=== PATIENT | female | born 1980 | race Caucasian/White ===

== ENCOUNTER 2018-01-18 19:10 | Outpatient (CLI) | payer OTHER | END 2018-01-18 20:40 | disposition home or self-care (01) | LOC: TRG 19:10 | PROVIDERS: ATTEND Obstetrics & Gynecology | DX: O46.93 Antepartum hemorrhage, unspecified, third trimester (principal); O47.1 False labor at or after 37 completed weeks of gestation; Z3A.40 40 weeks gestation of pregnancy | CPT/HCPCS: 59025 ==

== ENCOUNTER 2018-01-19 02:15 | Outpatient (CLI) | payer OTHER ==
[2018-01-19 03:10] VITALS: BP 121/75
[2018-01-19] MEDS ORDERED: VISTARIL PO ONE (03:18)
== END 2018-01-19 03:49 | disposition home or self-care (01) ==
LOC: TRG 02:15
PROVIDERS: ATTEND Obstetrics & Gynecology
DX: O47.1 False labor at or after 37 completed weeks of gestation (principal); Z3A.40 40 weeks gestation of pregnancy
CPT/HCPCS: 59025

== ENCOUNTER 2018-01-20 10:40 | Inpatient (IN) | payer OTHER ==
[2018-01-20] MEDS ORDERED: BRETHINE IVP PRN (15:48)
[2018-01-20] MEDS ORDERED: MINERAL OIL PO PRN (15:48)
[2018-01-20] MEDS ORDERED: BRETHINE SUB-Q PRN ×2 (15:48→17:47)
[2018-01-20] MEDS ORDERED: XYLOCAINE 2% INFILTRATI ONE ×2 (15:48→17:47)
[2018-01-20] MEDS ORDERED: LACTATED RINGERS 1,000 ML IV SCH ×2 (16:00→18:00)
[2018-01-20] MEDS ORDERED: PITOCin/NS 20 UNIT/1000ML DRIP 20 UNITS/1,000 ML BAG IV SCH ×2 (16:00→18:00)
[2018-01-20] MEDS ORDERED: PITOCin/NS 30 UNIT/500ML 30 UNITS/500 ML BAG IV SCH ×3 (16:00→18:00)
[2018-01-20 16:14] LABS: Hematocrit 34.6 % (30.3-42.9); Hemoglobin 11.6 gm/dl (10.1-14.3); Mean Corpuscular HGB Conc 34 % (30-34); Mean Corpuscular Hemoglobin 30 pg (28-32); Mean Corpuscular Volume 88 fl (79-97); Platelet Count 331 K/mm3 (140-440); Red Blood Count 3.95 M/mm3 (3.65-5.03); Red Cell Distribution Width 14.9 % (13.2-15.2)
[2018-01-20] MEDS: SUBLIMAZE IV PRN ×3 (17:00→21:14)
[2018-01-20] MEDS ORDERED: NARCAN 0.4 MG/1 ML IV PRN (17:47)
[2018-01-20] MEDS ORDERED: ZOFRAN IV PRN (17:47)
--- NOTE | 2018-01-20 17:54 | History and Physical Report ---
History of Present Illness Date of examination: 01/20/18 Date of admission: 01/20/18 16:54 Chief complaint: Intense Labor Pains History of present illness: Early entry to care, course complicated by AMA. Past History Past Medical History: no pertinent history Past Surgical History: no surgical history Family/Genetic History: diabetes Social history: no significant social history - Obstetrical History Expected Date of Delivery: 01/16/18 Actual Gestation: 40 Week(s) 4 Day(s) : 1 Medications and Allergies Allergies Allergy/AdvReac Type Severity Reaction Status Date / Time No Known Allergies Allergy Verified 01/19/18 03:24 Home Medications Medication Instructions Recorded Confirmed Last Taken Type No Known Home Medications [No 01/19/18 01/19/18 Unknown History Reported Home Medications] Active Meds: Active Medications Ephedrine Sulfate (Ephedrine Sulfate) 10 mg IV Q2M PRN PRN Reason: Hypotension Fentanyl (Sublimaze) 100 mcg IV Q2H PRN PRN Reason: Labor Pain Last Admin: 01/20/18 17:00 Dose: 100 mcg Lactated Ringer's (Lactated Ringers) 1,000 mls @ 125 mls/hr IV DIRECT JAREK Oxytocin/Sodium Chloride (Pitocin/Ns 20 Unit/1000ml Drip) 20 units in 1,000 mls @ 125 mls/hr IV DIRECT JAREK Oxytocin/Sodium Chloride (Pitocin/Ns 30 Unit/500ml) 30 units in 500 mls @ 1 mls /hr IV TITR JAREK; Protocol Mineral Oil (Mineral Oil) 30 ml PO QHS PRN PRN Reason: Constipation Terbutaline Sulfate (Brethine) 0.25 mg SUB-Q ONCE PRN PRN Reason: Hyperstimulation/Hypertonicity Terbutaline Sulfate (Brethine) 0.25 mg IVP ONCE PRN PRN Reason: Hyperstimulation/Hypertonicity Review of Systems All systems: negative - Vital Signs Vital signs: Vital Signs Pulse BP 77 128/81 01/18/18 19:45 01/18/18 19:45 Temp Pulse Resp BP Pulse Ox 97.9 F 84 16 112/71 93 01/20/18 17:19 01/20/18 17:44 01/20/18 17:19 01/20/18 17:10 01/20/18 17:44 - Physical Exam Breasts: Positive: normal Cardiovascular: Regular rate Lungs: Positive: Clear to auscultation, Normal air movement Abdomen: Positive: normal appearance, soft, normal bowel sounds Genitourinary (Female): Positive: normal external genitalia, normal perenium Vagina: Positive: normal moisture Uterus: Positive: enlarged Anus/Rectum: Positive: normal perianal skin - Obstetrical FHR: category 1 Cervical Dilatation: 3 Cervical Effacement Percentage: 100 station: -1 Uterine Contraction Pattern: Irregular Uterine Tone Measurement Phase: Resting Uterine Contraction Intensity: Moderate Results Result Diagrams: 01/20/18 15:46 Abnormal lab results 01/20/18 Range/Units 15:46 WBC 19.1 H (4.5-11.0) K/mm3 All other labs normal. Assessment and Plan A: IUP @ 40 4/7 Weeks Category I Tracing Early Labor GBS Negative P: Admit to L&D per Routine Orders Pitocin Augmentation Care transferred to Dr. Arine Caldwell
[2018-01-20] MEDS ORDERED: POLYCILLIN/NS 2 GM/100 ML 2 GM/100 ML BAG IV ONE (21:41)
[2018-01-20] MEDS ORDERED: NARCAN 2 MG/2 ML IV PRN (22:15)
[2018-01-20] MEDS ORDERED: fentaNYL-BUPIV 2 MCG/ML-0.125% 200 MCG/100 ML BAG EPIDURAL SCH (23:00)
--- NOTE | 2018-01-20 23:32 | Anesthesia Consultation ---
Anesthesia Consult and Med Hx Date of service: 01/20/18 - Airway Anesthetic Teeth Evaluation: Good ROM Head & Neck: Adequate Mental/Hyoid Distance: Adequate Mallampati Class: Class II Intubation Access Assessment: Possibly Difficult - Pulmonary Exam CTA: Yes - Cardiac Exam Cardiac Exam: RRR - Pre-Operative Health Status ASA Pre-Surgery Classification: ASA1, Emergency Proposed Anesthetic Plan: Epidural, Spinal - Pulmonary Hx Smoking: No Hx Asthma: No - Cardiovascular System Hx Hypertension: No Hx Heart Attack/AMI: No - Central Nervous System Hx Neuromuscular Disorder: No Hx Seizures: No CVA: No - Endocrine Hx Renal Disease: No
[2018-01-21] MEDS: TYLENOL PO PRN (00:09)
--- NOTE | 2018-01-21 03:14 | Progress Note ---
Assessment and Plan - Patient Problems (1) 40 weeks gestation of Onset Date: 01/21/18 Current Visit: Yes Status: Acute Plan to address problem: A: IUP @ 40 5/7 weeks in labor P: Continue with pitocin augmentation of labor Subjective - Subjective Date of service: 01/21/18 Principal diagnosis: IUP @ 40 4/7 weeks Interval history: Pt is currently on 12mu of pitocin and veronica q 3-4 mins with epidural in place. Patient reports: loss of fluid (AROM), contractions, no new complaints, no vaginal bleeding Objective - Vital Signs Vital Signs: Vital Signs - 12hr 01/20/18 01/20/18 01/20/18 15:13 15:18 15:23 Temperature Pulse Rate 81 67 86 Respiratory Rate Blood Pressure 128/71 Blood Pressure [Left] O2 Sat by Pulse 99 100 95 Oximetry 01/20/18 01/20/18 01/20/18 15:28 15:33 15:38 Temperature Pulse Rate 83 76 75 Respiratory Rate Blood Pressure Blood Pressure [Left] O2 Sat by Pulse 99 99 99 Oximetry 01/20/18 01/20/18 01/20/18 15:43 15:48 15:49 Temperature Pulse Rate 70 73 81 Respiratory Rate Blood Pressure 141/75 Blood Pressure [Left] O2 Sat by Pulse 100 100 Oximetry 01/20/18 01/20/18 01/20/18 15:53 15:58 16:03 Temperature Pulse Rate 73 79 87 Respiratory Rate Blood Pressure Blood Pressure [Left] O2 Sat by Pulse 100 100 98 Oximetry 01/20/18 01/20/18 01/20/18 16:08 16:13 16:41 Temperature Pulse Rate 82 79 81 Respiratory Rate Blood Pressure 113/76 Blood Pressure [Left] O2 Sat by Pulse 99 99 Oximetry 01/20/18 01/20/18 01/20/18 16:44 16:49 16:50 Temperature Pulse Rate 74 72 93 H Respiratory Rate Blood Pressure Blood Pressure [Left] O2 Sat by Pulse 96 97 94 Oximetry 01/20/18 01/20/18 01/20/18 16:59 17:00 17:04 Temperature Pulse Rate 89 79 Respiratory 16 Rate Blood Pressure Blood Pressure [Left] O2 Sat by Pulse 95 100 Oximetry 01/20/18 01/20/18 01/20/18 17:09 17:10 17:14 Temperature Pulse Rate 85 92 H 92 H Respiratory Rate Blood Pressure 112/71 Blood Pressure [Left] O2 Sat by Pulse 98 98 Oximetry 01/20/18 01/20/18 01/20/18 17:19 17:24 17:29 Temperature 97.9 F Pulse Rate 82 90 82 Respiratory 16 Rate Blood Pressure Blood Pressure [Left] O2 Sat by Pulse 97 96 94 Oximetry 01/20/18 01/20/18 01/20/18 17:30 17:34 17:35 Temperature Pulse Rate 85 78 82 Respiratory Rate Blood Pressure Blood Pressure [Left] O2 Sat by Pulse 94 94 91 Oximetry 01/20/18 01/20/18 01/20/18 17:39 17:44 17:49 Temperature Pulse Rate 80 84 67 Respiratory Rate Blood Pressure Blood Pressure [Left] O2 Sat by Pulse 95 93 98 Oximetry 01/20/18 01/20/18 01/20/18 17:50 17:54 17:57 Temperature Pulse Rate 86 81 81 Respiratory Rate Blood Pressure Blood Pressure [Left] O2 Sat by Pulse 89 96 94 Oximetry 01/20/18 01/20/18 01/20/18 17:59 18:04 18:09 Temperature Pulse Rate 80 79 87 Respiratory Rate Blood Pressure Blood Pressure [Left] O2 Sat by Pulse 99 97 93 Oximetry 01/20/18 01/20/18 01/20/18 18:14 18:19 18:22 Temperature Pulse Rate 83 70 81 Respiratory Rate Blood Pressure Blood Pressure [Left] O2 Sat by Pulse 97 100 94 Oximetry 01/20/18 01/20/18 01/20/18 18:24 18:29 18:34 Temperature Pulse Rate 72 82 87 Respiratory Rate Blood Pressure Blood Pressure [Left] O2 Sat by Pulse 96 99 100 Oximetry 01/20/18 01/20/18 01/20/18 18:39 18:44 18:49 Temperature Pulse Rate 87 66 64 Respiratory Rate Blood Pressure Blood Pressure [Left] O2 Sat by Pulse 99 99 99 Oximetry 01/20/18 01/20/18 01/20/18 18:53 18:54 18:59 Temperature Pulse Rate 81 79 88 Respiratory Rate Blood Pressure Blood Pressure [Left] O2 Sat by Pulse 94 98 97 Oximetry 01/20/18 01/20/18 01/20/18 19:04 19:09 19:14 Temperature Pulse Rate 81 90 98 H Respiratory Rate Blood Pressure Blood Pressure [Left] O2 Sat by Pulse 98 91 97 Oximetry 01/20/18 01/20/18 01/20/18 19:19 19:24 19:26 Temperature 99.5 F Pulse Rate 87 70 77 Respiratory 18 Rate Blood Pressure 124/79 Blood Pressure 124/79 [Left] O2 Sat by Pulse 99 100 Oximetry 01/20/18 01/20/18 01/20/18 19:27 19:29 19:35 Temperature Pulse Rate 90 75 72 Respiratory Rate Blood Pressure Blood Pressure [Left] O2 Sat by Pulse 92 91 99 Oximetry 01/20/18 01/20/18 01/20/18 19:40 19:45 19:50 Temperature Pulse Rate 88 96 H 85 Respiratory Rate Blood Pressure Blood Pressure [Left] O2 Sat by Pulse 96 95 94 Oximetry 01/20/18 01/20/18 01/20/18 19:51 19:55 20:00 Temperature Pulse Rate 84 76 86 Respiratory Rate Blood Pressure Blood Pressure [Left] O2 Sat by Pulse 94 99 95 Oximetry 01/20/18 01/20/18 01/20/18 20:05 20:06 20:09 Temperature 98.1 F Pulse Rate 100 H 76 90 Respiratory 18 Rate Blood Pressure Blood Pressure 124/79 [Left] O2 Sat by Pulse 95 97 94 Oximetry 01/20/18 01/20/18 01/20/18 20:10 20:15 20:18 Temperature Pulse Rate 79 85 87 Respiratory Rate Blood Pressure Blood Pressure [Left] O2 Sat by Pulse 98 95 94 Oximetry 01/20/18 01/20/18 01/20/18 20:20 20:25 20:30 Temperature Pulse Rate 95 H 82 86 Respiratory Rate Blood Pressure Blood Pressure [Left] O2 Sat by Pulse 91 95 87 Oximetry 01/20/18 01/20/18 01/20/18 20:35 20:40 20:45 Temperature Pulse Rate 68 77 78 Respiratory Rate Blood Pressure Blood Pressure [Left] O2 Sat by Pulse 98 99 98 Oximetry 01/20/18 01/20/18 01/20/18 20:50 20:55 21:00 Temperature Pulse Rate 76 76 81 Respiratory Rate Blood Pressure Blood Pressure [Left] O2 Sat by Pulse 98 99 98 Oximetry 01/20/18 01/20/18 01/20/18 21:05 21:10 21:13 Temperature 99.7 F H Pulse Rate 82 77 Respiratory Rate Blood Pressure Blood Pressure [Left] O2 Sat by Pulse 98 98 Oximetry 01/20/18 01/20/18 01/20/18 21:15 21:20 21:23 Temperature Pulse Rate 70 84 82 Respiratory Rate Blood Pressure Blood Pressure [Left] O2 Sat by Pulse 99 98 93 Oximetry 01/20/18 01/20/18 01/20/18 21:25 21:30 21:35 Temperature Pulse Rate 107 H 77 68 Respiratory Rate Blood Pressure Blood Pressure [Left] O2 Sat by Pulse 95 95 98 Oximetry 01/20/18 01/20/18 01/20/18 21:40 21:42 21:45 Temperature Pulse Rate 65 79 73 Respiratory Rate Blood Pressure Blood Pressure [Left] O2 Sat by Pulse 97 92 96 Oximetry 01/20/18 01/20/18 01/20/18 21:48 21:50 21:54 Temperature Pulse Rate 79 77 Respiratory Rate Blood Pressure Blood Pressure [Left] O2 Sat by Pulse 94 96 91 Oximetry 01/20/18 01/20/18 01/20/18 21:55 22:00 22:05 Temperature Pulse Rate 78 80 67 Respiratory Rate Blood Pressure Blood Pressure [Left] O2 Sat by Pulse 89 96 97 Oximetry 01/20/18 01/20/18 01/20/18 22:08 22:10 22:15 Temperature Pulse Rate 85 74 85 Respiratory Rate Blood Pressure Blood Pressure [Left] O2 Sat by Pulse 93 98 95 Oximetry 01/20/18 01/20/18 01/20/18 22:16 22:20 22:21 Temperature Pulse Rate 86 75 83 Respiratory Rate Blood Pressure 116/71 Blood Pressure [Left] O2 Sat by Pulse 94 90 79 L Oximetry 01/20/18 01/20/18 01/20/18 22:25 22:27 22:28 Temperature Pulse Rate 93 H 80 68 Respiratory Rate Blood Pressure 179/73 126/57 124/65 Blood Pressure [Left] O2 Sat by Pulse 98 Oximetry 01/20/18 01/20/18 01/20/18 22:30 22:32 22:34 Temperature Pulse Rate 68 72 83 Respiratory Rate Blood Pressure 120/61 122/62 118/59 Blood Pressure [Left] O2 Sat by Pulse 99 Oximetry 01/20/18 01/20/18 01/20/18 22:35 22:36 22:37 Temperature Pulse Rate 66 82 86 Respiratory Rate Blood Pressure 152/56 Blood Pressure [Left] O2 Sat by Pulse 99 93 Oximetry 01/20/18 01/20/18 01/20/18 22:38 22:40 22:45 Temperature Pulse Rate 79 84 100 H Respiratory Rate Blood Pressure 119/55 121/58 Blood Pressure [Left] O2 Sat by Pulse 99 99 Oximetry 01/20/18 01/20/18 01/20/18 22:46 22:49 22:50 Temperature Pulse Rate 100 H 87 98 H Respiratory Rate Blood Pressure 100/54 131/58 Blood Pressure [Left] O2 Sat by Pulse 97 Oximetry 01/20/18 01/20/18 01/20/18 22:51 22:52 22:54 Temperature Pulse Rate 102 H 101 H 95 H Respiratory Rate Blood Pressure 105/53 113/53 105/53 Blood Pressure [Left] O2 Sat by Pulse Oximetry 01/20/18 01/20/18 01/20/18 22:55 22:56 22:58 Temperature Pulse Rate 91 H 85 81 Respiratory Rate Blood Pressure 107/57 109/59 Blood Pressure [Left] O2 Sat by Pulse 86 Oximetry 01/20/18 01/20/18 01/20/18 23:00 23:02 23:04 Temperature Pulse Rate 89 85 80 Respiratory Rate Blood Pressure 112/62 113/59 112/57 Blood Pressure [Left] O2 Sat by Pulse 97 Oximetry 01/20/18 01/20/18 01/20/18 23:05 23:06 23:08 Temperature Pulse Rate 81 88 85 Respiratory Rate Blood Pressure 118/64 108/58 Blood Pressure [Left] O2 Sat by Pulse 97 Oximetry 01/20/18 01/20/18 01/20/18 23:10 23:12 23:14 Temperature Pulse Rate 83 93 H 86 Respiratory Rate Blood Pressure 113/59 113/62 112/61 Blood Pressure [Left] O2 Sat by Pulse 94 Oximetry 01/20/18 01/20/18 01/20/18 23:15 23:18 23:20 Temperature Pulse Rate 93 H 97 H 93 H Respiratory Rate Blood Pressure Blood Pressure [Left] O2 Sat by Pulse 93 93 95 Oximetry 01/20/18 01/20/18 01/20/18 23:27 23:31 23:32 Temperature Pulse Rate 80 104 H 101 H Respiratory Rate Blood Pressure 111/66 Blood Pressure [Left] O2 Sat by Pulse 97 96 Oximetry 01/20/18 01/20/18 01/20/18 23:37 23:42 23:45 Temperature Pulse Rate 95 H 100 H 115 H Respiratory Rate Blood Pressure 117/66 Blood Pressure [Left] O2 Sat by Pulse 96 96 Oximetry 01/20/18 01/20/18 01/20/18 23:47 23:52 23:57 Temperature Pulse Rate 114 H 98 H 89 Respiratory Rate Blood Pressure Blood Pressure [Left] O2 Sat by Pulse 96 97 95 Oximetry 01/21/18 01/21/18 01/21/18 00:01 00:02 00:07 Temperature Pulse Rate 83 82 89 Respiratory Rate Blood Pressure 99/55 Blood Pressure [Left] O2 Sat by Pulse 96 99 Oximetry 01/21/18 01/21/18 01/21/18 00:09 00:12 00:16 Temperature Pulse Rate 86 86 Respiratory 16 Rate Blood Pressure 92/51 Blood Pressure [Left] O2 Sat by Pulse 96 Oximetry 01/21/18 01/21/18 01/21/18 00:17 00:22 00:27 Temperature Pulse Rate 82 85 83 Respiratory Rate Blood Pressure Blood Pressure [Left] O2 Sat by Pulse 96 96 97 Oximetry 01/21/18 01/21/18 01/21/18 00:30 00:32 00:37 Temperature Pulse Rate 80 85 79 Respiratory Rate Blood Pressure 95/55 91/53 Blood Pressure [Left] O2 Sat by Pulse 96 94 Oximetry 01/21/18 01/21/18 01/21/18 00:38 00:42 00:45 Temperature Pulse Rate 79 79 77 Respiratory Rate Blood Pressure 94/55 Blood Pressure [Left] O2 Sat by Pulse 94 96 Oximetry 01/21/18 01/21/18 01/21/18 00:47 00:49 00:51 Temperature Pulse Rate 74 84 80 Respiratory Rate Blood Pressure 96/55 96/53 Blood Pressure [Left] O2 Sat by Pulse 97 Oximetry 01/21/18 01/21/18 01/21/18 00:52 00:53 00:55 Temperature Pulse Rate 82 84 80 Respiratory Rate Blood Pressure 98/55 109/57 Blood Pressure [Left] O2 Sat by Pulse 96 Oximetry 01/21/18 01/21/18 01/21/18 00:57 00:59 01:01 Temperature Pulse Rate 79 83 75 Respiratory Rate Blood Pressure 109/61 110/60 91/50 Blood Pressure [Left] O2 Sat by Pulse 96 Oximetry 01/21/18 01/21/18 01/21/18 01:02 01:03 01:05 Temperature Pulse Rate 77 73 76 Respiratory Rate Blood Pressure 91/55 92/50 Blood Pressure [Left] O2 Sat by Pulse 96 Oximetry 01/21/18 01/21/18 01/21/18 01:07 01:09 01:11 Temperature Pulse Rate 76 74 74 Respiratory Rate Blood Pressure 101/56 98/53 96/55 Blood Pressure [Left] O2 Sat by Pulse 96 Oximetry 01/21/18 01/21/18 01/21/18 01:12 01:13 01:15 Temperature Pulse Rate 78 78 72 Respiratory Rate Blood Pressure 95/50 100/52 Blood Pressure [Left] O2 Sat by Pulse 96 Oximetry 01/21/18 01/21/18 01/21/18 01:17 01:19 01:21 Temperature Pulse Rate 80 73 76 Respiratory Rate Blood Pressure 100/56 94/52 94/50 Blood Pressure [Left] O2 Sat by Pulse 97 Oximetry 01/21/18 01/21/18 01/21/18 01:22 01:27 01:32 Temperature Pulse Rate 74 81 72 Respiratory Rate Blood Pressure Blood Pressure [Left] O2 Sat by Pulse 96 93 96 Oximetry 01/21/18 01/21/18 01/21/18 01:33 01:37 01:39 Temperature Pulse Rate 94 H 76 72 Respiratory Rate Blood Pressure 97/53 Blood Pressure [Left] O2 Sat by Pulse 94 95 94 Oximetry 01/21/18 01/21/18 01/21/18 01:42 01:47 01:52 Temperature Pulse Rate 74 80 78 Respiratory Rate Blood Pressure 100/55 Blood Pressure [Left] O2 Sat by Pulse 95 95 96 Oximetry 01/21/18 01/21/18 01/21/18 01:54 01:57 02:02 Temperature Pulse Rate 78 99 H 73 Respiratory Rate Blood Pressure Blood Pressure [Left] O2 Sat by Pulse 94 94 96 Oximetry 01/21/18 01/21/18 01/21/18 02:07 02:12 02:17 Temperature Pulse Rate 72 71 76 Respiratory Rate Blood Pressure 98/56 Blood Pressure [Left] O2 Sat by Pulse 96 96 97 Oximetry 01/21/18 01/21/18 01/21/18 02:21 02:22 02:27 Temperature Pulse Rate 78 79 69 Respiratory Rate Blood Pressure 96/55 Blood Pressure [Left] O2 Sat by Pulse 96 97 Oximetry 01/21/18 01/21/18 01/21/18 02:32 02:37 02:38 Temperature Pulse Rate 71 70 71 Respiratory Rate Blood Pressure 103/53 Blood Pressure [Left] O2 Sat by Pulse 98 98 Oximetry 01/21/18 01/21/18 01/21/18 02:39 02:42 02:45 Temperature Pulse Rate 75 75 78 Respiratory Rate Blood Pressure Blood Pressure [Left] O2 Sat by Pulse 94 96 91 Oximetry 01/21/18 01/21/18 01/21/18 02:47 02:52 02:53 Temperature Pulse Rate 71 87 83 Respiratory Rate Blood Pressure 106/57 Blood Pressure [Left] O2 Sat by Pulse 96 96 Oximetry 01/21/18 01/21/18 01/21/18 02:57 02:58 03:02 Temperature Pulse Rate 74 77 79 Respiratory Rate Blood Pressure Blood Pressure [Left] O2 Sat by Pulse 94 92 97 Oximetry 01/21/18 01/21/18 03:07 03:08 Temperature Pulse Rate 69 78 Respiratory Rate Blood Pressure 118/71 Blood Pressure [Left] O2 Sat by Pulse 99 Oximetry - Exam Abdomen: Present: normal appearance, soft FHR: category 1 Uterine Contraction Monitor Mode: External Cervical Dilatation: 4 Cervical Effacement Percentage: 100 station: -1 Uterine Contraction Pattern: Regular Uterine Tone Measurement Phase: Contraction Uterine Contraction Intensity: Moderate - Labs Labs: Abnormal Labs 01/20/18 15:46 WBC 19.1 H Laboratory Results - last 24 hr 01/20/18 01/20/18 15:46 15:46 WBC 19.1 H RBC 3.95 Hgb 11.6 Hct 34.6 MCV 88 MCH 30 MCHC 34 RDW 14.9 Plt Count 331 Blood Type A POSITIVE Antibody Screen Negative
[2018-01-21] MEDS ORDERED: XYLOCAINE MPF 2% ONE ×2 (03:20→20:57)
[2018-01-21] MEDS: AMPICILLIN/NS 1 GM/50 ML 1 GM/50 ML BAG IV SCH ×4 (06:00→20:50)
--- NOTE | 2018-01-21 18:21 | Event Note ---
37yo 40 5/7 weeks, dilated 8cm, caput, Pit stopped. AROM ~13hrs. Temp: /-2 Plan: 1. Recheck cervix 1 hr. 2. Restart Pitocin. 3. If no decent of vertex in 1 hr, plan primary section due to arrest of decent.
[2018-01-21] MEDS ORDERED: BICITRA PO ONE (20:57)
[2018-01-21] MEDS ORDERED: REGLAN IV ONE (20:57)
[2018-01-21] MEDS ORDERED: PEPCID IV ONE (20:57)
[2018-01-21] MEDS ORDERED: LACTATED RINGERS 1,000 ML IV SCH (21:00)
[2018-01-21] MEDS ORDERED: ANCEF/STERILE WATER 2 GM/20 ML 2 GM/20 ML SYRINGE IV NR (21:00)
[2018-01-21] MEDS ORDERED: METHERGINE IM ONE ×2 (21:10→22:09)
[2018-01-21] MEDS ORDERED: REGLAN ONE (21:10)
--- NOTE | 2018-01-21 21:20 | Event Note ---
Date: 01/21/18 SVE at 20:45: /-1. FHR baseline now 165-170 and maternal temp. 99.9. Thin meconium fluid noted. Consulted Dr. Mahmood at 20:50 regarding cervical exam, FHR tracing and temp. section called by Dr. Mahmood. Nursing and surgical team and anesthesia notified of need to do section. Discussed this plan with patient and family.
[2018-01-21] MEDS ORDERED: WATER FOR IRRIG STERILE IR ONE (21:21)
[2018-01-21] MEDS ORDERED: NACL 0.9% IR ONE (21:21)
[2018-01-21] MEDS ORDERED: ASTRAMORPH PF 10MG/10ML ONE (21:43)
[2018-01-21] MEDS ORDERED: LANSINOH TP PRN (23:03)
[2018-01-21] MEDS ORDERED: MYLICON PO PRN (23:03)
[2018-01-21] MEDS ORDERED: MILK OF MAGNESIA PO PRN (23:03)
[2018-01-21] MEDS ORDERED: PERCOCET 5/325 PO PRN (23:03)
[2018-01-21] MEDS ORDERED: TUCKS PAD TP PRN (23:03)
[2018-01-21] MEDS ORDERED: PHENERGAN PR PRN (23:23)
[2018-01-21] MEDS ORDERED: ZOFRAN IV PRN (23:23)
[2018-01-21] MEDS ORDERED: DILAUDID IV PRN (23:23)
--- NOTE | 2018-01-21 23:26 | Operative Report ---
Operative Report Operative Report: PREOP Diagnosis 1. 40 6/7 weeks gestation 2. Arrest of descent 3. tachycardia 4. Meconium stained membranes Postop Diagnosis 1. 40 6/7 weeks gestation 2. Arrest of descent 3. tachycardia 4. Meconium stained membranes Procedure: Primary low-transverse section Findings 1. Viable female infant in the vertex position, weighing 8lb 7 oz, 3828g APGARS 8 at 1 min, 9 at 5 min 2. Normal uterus bilateral ovaries and tubes 3. Distended urinary bladder Surgeon 1. Glenna Mahmood MD Anesthesia: 1. Epidural I/O: EBL: 800ml UOP: 450 ml Specimens removed: 1. Placenta - sent to pathology Complications: none Disposition: Patient taken to recovery room in stable condition INDICATIONS: The patient is a 37yo at 40 6/7weeks that was undergoing augmentation of labor and was found to make cervical change but no descent of head. Maternal temp was 99, heart tones 170s therefore the decision was made to proceed to primary section. The patient was consented and the risks including but not limited to bleeding, infections, injury to surrounding organs , potential injury to mother/infant were discussed. All questions were answered and informed consent signed. PROCEDURE: The patient was taken to the OR in stable condition. Adequate anesthesia was achieved with epidural anesthesia. A wren catheter had been previously placed. She wore SCDs for DVT prophylaxis. And received Ancef for infection prophylaxis. heart tones were confirmed 145. The patient was prepped and draped in the usual fashion and an additional time out was done. A Pfannestiel incision was made in the skin. The fascia was incised and the incision extended laterally. The superior and inferior aspect of the rectus muscle was dissected off of the fascia. Upon dissection of the rectus muscle at the midline the peritoneum was noted to bulge. Entry into the peritoneum was achieved through careful dissection and the urinary bladder was noted to be distended. the OR nurse was then made aware and assisted by deflating the Wren bulb while pressure was applied to the urinary bladder to assist in emptying. Once the bladder was deflated and the uterus was visualized, the wren bulb was then inflated. A bladder blade was placed protecting the bladder. A low-transverse incision made made in the uterus and extended laterally. membranes were ruptured and noted to be of thin meconium A vaginal hand was assisted by the OR nurse assisting in elevation of the head out of the pelvis. The head was brought to the hysterotomy and delivered The body was delivered and mouth bulb suctioned. The cord was clamped x 2, cut and handed off to awaiting central office equipment installer staff. Cord gases were collected. The placenta was delivered intact. 20 units of IV Pitocin were added to LR fluids. Methergine 0.2mg IM was administered. The uterus was cleaned of all clots. An Chencho retractor was placed to assist in visualization. A lap previously placed in the abdomen for packing was removed. The uterus was repaired with 0-Vicryl in a running, locked stitch and an imbricating layer of the same suture was used. The rectus muscle was re-approximated with 2- 0Vicryl. Interceed was applied to the upper aspect of the rectus muscle. Fascia was closed with 0 Vicryl. Subcutaneous layer reapproximated with 230 Vicryl. Skin closed with 4-0 Vicryl. The patient tolerated the procedure well. All counts were correct x 3. Urine was noted to be clear at close of case. I was present and scrubbed for the entire procedure. The patient was taken to the recovery room in stable condition.
[2018-01-21] MEDS ORDERED: PITOCin/NS 20 UNIT/1000ML DRIP 20 UNITS/1,000 ML BAG IV SCH (23:45)
[2018-01-21] MEDS ORDERED: SODIUM CHLORIDE FLUSH SYRINGE 10 ML IV NR (23:45)
[2018-01-21] MEDS ORDERED: fentaNYL-BUPIV 2 MCG/ML-0.125% 200 MCG/100 ML BAG EPIDURAL SCH (23:45)
[2018-01-21] MEDS: TORADOL IV PRN (23:59)
[2018-01-22] MEDS: TYLENOL PO PRN (00:19)
[2018-01-22] MEDS: ANCEF/NS 1 GM/50 ML 1 GM/50 ML BAG IV SCH ×2 (05:42→14:15)
[2018-01-22] MEDS ORDERED: D5LR 1,000 ML IV SCH (06:00)
[2018-01-22] MEDS: TORADOL IV PRN (08:05)
--- NOTE | 2018-01-22 09:40 | Progress Note ---
Assessment and Plan A: /postop day 1 S/P LTCS. P: Advance diet as tolerated. Ambulate today. Subjective - Subjective Date of service: 01/22/18 Principal diagnosis: /postop day 1 S/P primary LTCS Interval history: /postop day 1 S/P primary low transverse section. Doing well. Not passing gas yet. Has not been out of bed to ambulate yet. Graham catheter in place. Patient reports small amount of lochia. Patient denies headache, chest pain, cough, shortness of breath, leg pain, abdominal pain, heavy bleeding, or any other problems. Patient reports: appetite normal, voiding normally, pain well controlled, ambulating normally [place]: doing well Objective - Vital Signs Latest vital signs: Vital Signs Temp Pulse Resp BP BP Pulse Ox 01/22/18 08:11 98.4 F 79 22 118/71 97 01/22/18 04:00 98.7 F 69 18 117/72 01/22/18 00:45 98.7 F 84 18 122/69 01/22/18 00:15 87 14 112/60 96 01/22/18 00:10 82 13 120/72 94 01/22/18 00:00 104 H 15 125/69 96 01/21/18 23:40 96 H 18 116/55 96 01/21/18 23:36 85 18 108/49 98 01/21/18 23:30 87 14 118/57 95 01/21/18 23:25 84 14 122/65 97 01/21/18 23:19 89 14 118/64 93 01/21/18 23:12 99.8 F H 90 16 122/62 96 01/21/18 21:07 99 H 128/70 01/21/18 21:02 89 97 01/21/18 20:58 78 139/67 01/21/18 20:57 77 97 01/21/18 20:52 95 H 144/97 99 01/21/18 20:47 107 H 98 01/21/18 20:43 86 91 01/21/18 20:39 73 99 01/21/18 20:35 83 87 01/21/18 20:34 80 98 01/21/18 20:29 89 85 01/21/18 20:24 78 100 01/21/18 20:23 86 141/72 10/05/18 20:19 86 100 05/18 20:14 86 100 05/18 20:09 79 99 05/18 20:07 80 134/74 05/18 20:04 85 98 05/18 19:59 99.9 F H 92 H 18 99 05/18 19:52 90 126/60 05/18 19:37 80 125/60 05/18 19:24 99.1 F 83 18 05/18 19:22 83 121/61 1005/18 19:07 85 113/66 05/18 18:51 86 118/61 05/18 18:36 118 H 135/66 05/18 18:22 86 134/66 05/18 18:06 80 121/61 05/18 17:52 85 116/60 05/18 17:37 85 117/65 05/18 17:23 97 H 114/72 05/18 17:22 94 H 91 0518 17:17 89 92 0518 17:12 92 H 96 05/18 17:07 88 118/72 97 0518 17:02 92 H 97 18 16:57 99 H 98 0518 16:52 85 126/62 70 L 18 16:47 88 91 05/18 16:42 90 91 05/18 16:38 89 94 05/18 16:37 87 95 05/18 16:36 88 119/66 05/18 16:33 90 94 05/18 16:32 90 92 05/18 16:27 85 94 05/18 16:25 96 H 93 05/18 16:22 85 115/63 96 05/18 16:17 84 96 05/18 16:12 87 95 05/18 16:10 92 H 94 05/18 16:07 85 120/65 94 05/18 16:04 86 94 05/18 16:02 81 96 05/18 15:57 85 95 05/18 15:54 86 93 05/18 15:52 88 95 10/05/18 15:51 81 122/64 10/05/18 15:47 81 96 10/05/18 15:46 81 93 10/05/18 15:42 82 97 10/05/18 15:37 78 96 10/05/18 15:36 73 134/71 10/05/18 15:35 73 94 10/05/18 15:32 80 96 10/05/18 15:27 77 97 10/05/18 15:22 82 97 10/05/18 15:21 82 130/73 93 10/05/18 15:17 84 96 10/05/18 15:12 78 97 10/05/18 15:11 83 93 10/05/18 15:07 75 97 10/05/18 15:06 74 129/71 1005/18 15:02 79 97 10/05/18 14:57 76 98 10/05/18 14:52 75 129/73 98 10/05/18 14:47 66 97 10/05/18 14:42 75 97 1005/18 14:37 74 128/72 96 10/05/18 14:32 73 97 10/05/18 14:27 77 97 10/05/18 14:25 82 94 10/05/18 14:22 76 97 10/05/18 14:21 84 135/70 10/05/18 14:17 78 95 10/05/18 14:13 84 94 10/05/18 14:12 77 95 10/05/18 14:08 75 127/66 10/05/18 14:07 74 97 10/05/18 14:03 82 94 10/05/18 14:02 81 97 10/05/18 13:57 83 94 10/05/18 13:55 80 94 10/05/18 13:52 80 129/67 96 10/05/18 13:47 81 93 10/05/18 13:44 81 93 10/05/18 13:42 80 98 10/05/18 13:38 82 134/66 10/05/18 13:37 76 97 10/05/18 13:36 81 94 10/05/18 13:32 81 96 10/05/18 13:28 80 94 10/05/18 13:27 76 95 10/05/18 13:23 80 117/63 10/05/18 13:22 83 97 10/05/18 13:17 81 96 10/05/18 13:12 77 95 10/05/18 13:08 77 114/65 10/05/18 13:07 86 98 10/05/18 13:02 86 98 10/05/18 12:57 86 96 10/05/18 12:52 84 111/66 98 10/05/18 12:47 77 96 10/05/18 12:44 75 93 10/05/18 12:42 74 98 10/05/18 12:37 78 97 10/05/18 12:36 74 112/62 10/05/18 12:32 79 96 10/05/18 12:30 81 118/65 10/05/18 12:27 69 96 10/05/18 12:26 76 123/68 94 10/05/18 12:22 87 98 10/05/18 12:21 87 115/68 10/05/18 12:19 89 111/67 1005/18 12:17 77 99 1005/18 12:12 72 96 1005/18 12:07 78 98 1005/18 12:06 80 113/60 1005/18 12:02 90 100 10/05/18 11:57 95 H 99 10/05/18 11:52 80 106/56 97 10/05/18 11:47 84 98 10/05/18 11:42 81 97 10/05/18 11:40 82 88 10/05/18 11:37 87 98 10/05/18 11:36 97 H 95/52 10/05/18 11:32 83 98 10/05/18 11:27 81 99 10/05/18 11:22 78 99 10/05/18 11:21 79 103/57 10/05/18 11:17 85 98 10/05/18 11:12 82 98 10/05/18 11:07 84 99 10/05/18 11:06 81 105/58 10/05/18 11:02 90 98 10/05/18 10:57 75 98 10/05/18 10:52 82 99 10/05/18 10:51 75 107/60 10/05/18 10:47 78 99 10/05/18 10:42 88 98 10/05/18 10:37 80 98 10/05/18 10:36 79 113/66 10/05/18 10:32 79 99 01/21/18 10:27 81 99 01/21/18 10:22 77 99 01/21/18 10:21 80 113/70 01/21/18 10:17 80 98 01/21/18 10:12 82 98 01/21/18 10:07 84 98 01/21/18 10:06 82 111/60 01/21/18 10:02 75 98 01/21/18 10:01 98.2 F 01/21/18 09:57 78 98 01/21/18 09:52 82 98 01/21/18 09:51 82 112/60 01/21/18 09:47 83 99 01/21/18 09:42 89 98 01/21/18 09:37 80 99 01/21/18 09:36 78 112/62 Intake and Output 01/21/18 01/22/18 01/22/18 23:59 07:59 15:59 Intake Total 2068.867 Output Total 600 2000 Balance 1468.867 -2000 Intake: IV 2068.867 AMPICILLIN/NS 1 GM/50 ML 50 1 gm In 50 ml @ 100 mls/ hr IV Q4HR [facility] Rx#: [id number] PITOCin/NS 30 UNIT/500ML 18.867 30 units In 500 ml @ 4 MILLIUNITS/MIN 4 mls/hr IV TITR JAREK Rx#:[id number] Output: Urine 600 2000 Indwelling Catheter 400 1600 Uretheral (Graham) 400 Other: Total, Output Amount 400 800 Estimated Blood Loss 800 - Exam Cardiovascular: Present: Regular rate, Normal S1, Normal S2 Lungs: Present: Clear to auscultation Abdomen: Present: normal appearance, soft, normal bowel sounds. Absent: distention, tenderness, guarding, rigidity Uterus: Present: normal, firm, fundal height below umbilicus. Absent: bogginess , tenderness Extremities: Present: normal. Absent: tenderness, edema Incision: Present: normal, dry, intact, dressed - Labs Labs: Abnormal lab results 01/21/18 01/21/18 Range/Units 22:22 22:32 POC ABG pH 7.331 L (7.35-7.45) POC ABG pCO2 34.4 L 29.0 L (35-45) POC ABG pO2 17 L 20 L (80-105)
[2018-01-22 10:48] LABS: Alanine Aminotransferase 9 units/L (7-56); Albumin 2.6 g/dL (3.9-5); BUN/Creatinine Ratio 11; Blood Urea Nitrogen 10 mg/dL (7-17); Calcium 8.4 mg/dL (8.4-10.2); Hemolysis Index 16
[2018-01-22 11:06] LABS: Hemoglobin 10.5 gm/dl (10.1-14.3)
[2018-01-23] MEDS: MOTRIN PO PRN ×2 (10:28→18:46)
--- NOTE | 2018-01-23 13:40 | Progress Note ---
Assessment and Plan A: /postop day 2 S/P primary low transverse section. Anemia. P: Continue iron supplements. Continue to ambulate. Subjective - Subjective Date of service: 01/23/18 Principal diagnosis: /postop day 2 S/P primary LTCS Interval history: /postop day 2 S/P primary low transverse section. Doing well. Patient is passing gas and voiding without difficulty. She is ambulating well. She is tolerating a regular diet without nausea or vomiting. Patient denies headache, chest pain, cough, shortness of breath, abdominal pain , leg pain, swelling, or any other symptoms. Patient reports: appetite normal, voiding normally, pain well controlled, flatus , bowel movement, ambulating normally [place]: doing well Objective - Vital Signs Latest vital signs: Vital Signs Temp Pulse Resp BP BP Pulse Ox 01/23/18 08:09 97.8 F 76 18 102/61 100 01/23/18 01:16 98.8 F 88 18 101/61 98 01/22/18 21:54 98.3 F 88 18 100 01/22/18 21:53 18 107/67 01/22/18 16:22 98.7 F 87 20 103/62 97 01/22/18 14:15 98.7 F 84 18 101/66 98 Intake and Output 01/22/18 01/23/18 01/23/18 23:59 07:59 15:59 Other: # Voids Indwelling Catheter 1 - Exam Cardiovascular: Present: Regular rate, Normal S1, Normal S2 Lungs: Present: Clear to auscultation Abdomen: Present: normal appearance, soft, normal bowel sounds. Absent: distention, tenderness, guarding, rigidity Uterus: Present: normal, firm, fundal height below umbilicus. Absent: bogginess , tenderness Extremities: Present: normal. Absent: tenderness, edema Incision: Present: normal, dry, intact
[2018-01-24] MEDS: MOTRIN PO PRN (08:32)
--- NOTE | 2018-01-24 10:01 | Discharge Summary ---
Providers - Providers Date of Admission: 01/20/18 16:54 Date of discharge: 01/24/18 Attending physician: GILLIAN MICHAELS MD Primary care physician: GILLIAN MICHAELS MD Hospitalization Reason for admission: active labor, IUP at term Delivery: Procedure: primary low transverse Episiotomy: none Laceration: none Incision: normal, dry, intact Other procedures: none complications: none Discharge diagnosis: IUP at term delivered [place] baby: female Hospital course: Uncomplicated Condition at discharge: Stable Disposition: DC-01 TO HOME OR SELFCARE - Discharge Diagnoses (1) S/P primary low transverse Status: Acute Plan - Discharge Medications Prescriptions: Ibuprofen 800 mg PO Q6H 10 Days #30 tablet MDD 3200mg oxyCODONE /ACETAMINOPHEN [Percocet 5/325] 1 tab PO Q4HR PRN 14 Days #30 tab PRN Reason: Pain, Moderate (4-6) - Provider Discharge Summary Activity: routine, no sex for 6 weeks, no heavy lifting 4 weeks, no strenuous exercise Diet: routine Instructions: routine Additional instructions: [] Smoking cessation referral if applicable(refer to patient education folder for contact #) [] Refer to [facility] Booklet Call your doctor immediately for: * Fever > 100.5 * Heavy vaginal bleeding ( >1 pad per hour) * Severe persistent headache * Shortness of breath * Reddened, hot, painful area to leg or breast * Drainage or odor from incision. * Keep incision clean and dry at all times and follow doctor's instructions regarding bathing/showering - Follow up plan Follow up: GILLIAN MICHAELS MD [Primary Care Provider] - 7 Days (Follow up at [facility] in 1 week for incision check)
--- NOTE | 2018-01-24 10:01 | Progress Note ---
Assessment and Plan - Patient Problems (1) S/P primary low transverse Current Visit: Yes Status: Acute Plan to address problem: POD 3 - stable Discharge to home today Follow up at [facility] in 1 week for incision check Subjective - Subjective Date of service: 01/24/18 Principal diagnosis: POD #3; s/p Primary LTCS Patient reports: appetite normal, voiding normally, pain well controlled, flatus , ambulating normally : doing well, nursing well Objective - Vital Signs Latest vital signs: Vital Signs Temp Pulse Resp BP BP Pulse Ox 01/24/18 08:52 97.5 F L 60 18 109/64 01/24/18 08:32 20 01/24/18 00:27 97.8 F 66 16 95/54 01/23/18 15:57 98.2 F 82 18 102/65 98 Intake and Output 01/23/18 01/24/18 01/24/18 23:59 07:59 15:59 Intake Total 360 240 120 Balance 360 240 120 Intake: Oral 120 Intake, Free Water 360 240 Other: Total, Intake Amount 120 # Voids Void 1 2 - Exam Abdomen: Present: normal appearance, soft Vulva: both: normal Uterus: Present: normal, firm, fundal height below umbilicus Extremities: Present: normal Incision: Present: normal, dry, intact Comments: scant lochia
[2018-01-24 15:52] VITALS: BP 106/70
== END 2018-01-24 19:15 | disposition home or self-care (01) | DRG 788 ==
LOC: TRG 10:40 → LD 16:54 → APU 01-21 21:59 → OB 01-22 00:59
PROVIDERS: ADMIT Obstetrics & Gynecology; ATTEND Obstetrics & Gynecology
PROC: 10D00Z1 Extraction of Products of Conception, Low, Open Approach (ICD-10-PCS; principal; 2018-01-21)
DX: O77.0 Labor and delivery complicated by meconium in amniotic fluid (principal); Z3A.40 40 weeks gestation of pregnancy; Z37.0 Single live birth; Z83.3 Family history of diabetes mellitus; O62.1 Secondary uterine inertia; O76 Abnormality in fetal heart rate and rhythm complicating labor and delivery
CPT/HCPCS: 36415; 80053; 82565; 82803; 85014; 85018; 85027; 86592; 86850; 86900; 86901; 88307; C1765; J0290; J0690; J1885; J2210; J2274; J2590; J2765; J3010; J7120; J7121